=== PATIENT | male | born 1985 | race Caucasian/White ===

== ENCOUNTER 2017-07-05 10:15 | Emergency (ER) | payer OTHER, SELFPAY ==
--- NOTE | 2017-07-05 10:45 | HMH.EDUTC ---
[facility] [place] Disposition Clinical Impression: URI (upper respiratory infection) Qualifiers: URI type: unspecified URI Qualified Code(s): J06.9 - Acute upper respiratory infection, unspecified Disposition: Home, Self-Care Condition on Discharge: Good Instructions: Sore Throat, DI for Nasal Congestion, DI for Cough -- Adult Additional Instructions: *If you did not take Penicillin shot or was unable to, start taking antibiotic immediately and make sure that you take it for the FULL length of time although you should start to feel better in 24-48 hours *change toothbrush and toothpaste 24-48 hours after starting to take antibiotics so you do not reinfect yourself Monitor Temp. Tylenol and/or Ibuprofen as needed. ER if fever is no less than 101 despite alternating Tylenol and Ibuprofen * Encourage fluids, water, Gatorade, powerade, pedialyte if infant/toddler/or child *Cold fluids, popsicles and ice cream may feel good on his throat Prescriptions: Azithromycin [Z-Haider 250mg Tab] 250 mg PO UD DOSE PK #6 tab Dextromethorphan Polistirex [Delsym] 10 ml PO Q12H PRN #300 gibran.er.12h PRN Reason: Cough Guaifenesin/Dextromethorphan [Mucinex Dm ER 1,200-60 mg Tab] 1 each PO Q12H #10 tab.er.12h predniSONE [Prednisone 5mg Tab Dose-Pack] 5 mg PO UD DOSE PK #21 pack Forms: Work/School Release Time of Disposition: 11:08 Medical Decision Making - Medical Records Medical records reviewed: Yes: I reviewed the patient's medical records. Vital Signs: 07/05/17 10:53 Temperature 98.2 F Temperature Source Oral Pulse Rate [Right Brachial] 87 Respiratory Rate 16 Blood Pressure [Right Arm] 132/81 Blood Pressure Mean [Right Arm] 98 Blood Pressure Source [Right Arm] Automatic Cuff Blood Pressure Position [Right Arm] Supine 02 Sat by Pulse Oximetry 98 Oxygen Delivery Method Room Air - Karl Inquiry Pt receiving controlled substance: No Karl was queried for this patient: No [facility] [place] HPI - General Stated complaint: cough headache dizzy HEENT Symptoms (Recalled from RN notes): Yes - History of Present Illness Provider Complaint: Patient state that he has been having sinus pain and congestion State that his throat has been sore and irritated and blowing dark thick yellowish green out of his nose States that he has not had a fever that he knows of but just not feeling well State that he is having a nagging cough and headache at times - Related Data Previous Rx's Medication Instructions Recorded Azithromycin [Z-Haider 250mg Tab] 250 mg PO UD DOSE PK #6 tab 07/05/17 Dextromethorphan Polistirex 10 ml PO Q12H PRN #300 gibran.er.12h 07/05/17 [Delsym] Guaifenesin/Dextromethorphan 1 each PO Q12H #10 tab.er.12h 07/05/17 [Mucinex Dm ER 1,200-60 mg Tab] predniSONE [Prednisone 5mg Tab 5 mg PO UD DOSE PK #21 pack 07/05/17 Dose-Pack] Allergies Allergy/AdvReac Type Severity Reaction Status Date / Time Penicillins Allergy Rash Verified 07/05/17 10:47 [facility] History I have reviewed the patient's past medical history: Yes - Social History Alcohol Intake: never ROS Obtained: Yes All systems reviewed & no additional complaints - Constitutional Constitutional: Reports headache(s) - ENT Ears, Nose, Mouth, and Throat: Reports nasal congestion, Reports sinus pain, Reports sore throat - Respiratory Respiratory: Yes cough Physical Exam - General General appearance: alert, in no apparent distress - Expanded ENT Exam Throat exam: Present: tonsillar erythema Comment: Throat red, irritated drainage noted - Respiratory Respiratory exam: Present: normal lung sounds bilaterally. Absent: respiratory distress - Cardiovascular Cardiovascular exam: Present: regular rate, normal rhythm. Absent: JVD - Neurological Exam Neurological exam: Present: alert, oriented X3
--- NOTE | 2017-07-05 10:48 | ED_ITS ---
[facility] [place] Disposition Clinical Impression: URI (upper respiratory infection) Qualifiers: URI type: unspecified URI Qualified Code(s): J06.9 - Acute upper respiratory infection, unspecified Disposition: Home, Self-Care Condition on Discharge: Good Instructions: Sore Throat, DI for Nasal Congestion, DI for Cough -- Adult Additional Instructions: *If you did not take Penicillin shot or was unable to, start taking antibiotic immediately and make sure that you take it for the FULL length of time although you should start to feel better in 24-48 hours *change toothbrush and toothpaste 24-48 hours after starting to take antibiotics so you do not reinfect yourself Monitor Temp. Tylenol and/or Ibuprofen as needed. ER if fever is no less than 101 despite alternating Tylenol and Ibuprofen * Encourage fluids, water, Gatorade, powerade, pedialyte if infant/toddler/or child *Cold fluids, popsicles and ice cream may feel good on his throat Prescriptions: Azithromycin [Z-Haider 250mg Tab] 250 mg PO UD DOSE PK #6 tab Dextromethorphan Polistirex [Delsym] 10 ml PO Q12H PRN #300 gibran.er.12h PRN Reason: Cough Guaifenesin/Dextromethorphan [Mucinex Dm ER 1,200-60 mg Tab] 1 each PO Q12H #10 tab.er.12h predniSONE [Prednisone 5mg Tab Dose-Pack] 5 mg PO UD DOSE PK #21 pack Forms: Work/School Release Time of Disposition: 11:08 Medical Decision Making - Medical Records Medical records reviewed: Yes: I reviewed the patient's medical records. Vital Signs: 07/05/17 10:53 Temperature 98.2 F Temperature Source Oral Pulse Rate [Right Brachial] 87 Respiratory Rate 16 Blood Pressure [Right Arm] 132/81 Blood Pressure Mean [Right Arm] 98 Blood Pressure Source [Right Arm] Automatic Cuff Blood Pressure Position [Right Arm] Supine 02 Sat by Pulse Oximetry 98 Oxygen Delivery Method Room Air - Karl Inquiry Pt receiving controlled substance: No Karl was queried for this patient: No [facility] [place] HPI - General Stated complaint: cough headache dizzy HEENT Symptoms (Recalled from RN notes): Yes - History of Present Illness Provider Complaint: Patient state that he has been having sinus pain and congestion State that his throat has been sore and irritated and blowing dark thick yellowish green out of his nose States that he has not had a fever that he knows of but just not feeling well State that he is having a nagging cough and headache at times - Related Data Previous Rx's Medication Instructions Recorded Azithromycin [Z-Haider 250mg Tab] 250 mg PO UD DOSE PK #6 tab 07/05/17 Dextromethorphan Polistirex 10 ml PO Q12H PRN #300 gibran.er.12h 07/05/17 [Delsym] Guaifenesin/Dextromethorphan 1 each PO Q12H #10 tab.er.12h 07/05/17 [Mucinex Dm ER 1,200-60 mg Tab] predniSONE [Prednisone 5mg Tab 5 mg PO UD DOSE PK #21 pack 07/05/17 Dose-Pack] Allergies Allergy/AdvReac Type Severity Reaction Status Date / Time Penicillins Allergy Rash Verified 07/05/17 10:47 [facility] History I have reviewed the patient's past medical history: Yes - Social History Alcohol Intake: never ROS Obtained: Yes All systems reviewed & no additional complaints - Constitutional Constitutional: Reports headache(s) - ENT Ears, Nose, Mouth, and Throat: Reports nasal congestion, Reports sinus pain, Reports sore throat - Respiratory Respiratory: Yes cough Physical Exam - General
[2017-07-05 10:53] VITALS: BP 132/81; PULSE 87; RESP 16; TEMP 36.8; O2SAT 98; BMI 33.3
[2017-07-05 11:12] VITALS: BP 132/81; PULSE 87; RESP 16; TEMP 36.8; O2SAT 98
[2017-07-05 11:38] LABS: UTC Influenza A Antigen Negative (Negative); UTC Influenza B Antigen Negative (Negative); UTC Strep Screen (Rapid) Negative (Negative)
== END 2017-07-05 11:14 | disposition home or self-care (01) ==
PROVIDERS: Emergency Provider Nurse Practitioner
DX: J06.9 Acute upper respiratory infection, unspecified (principal); Z88.0 Allergy status to penicillin
CPT/HCPCS: 87804; 87880; 99203

== ENCOUNTER 2020-06-21 19:24 | Emergency (ER) | payer BC, SELFPAY ==
[2020-06-21 19:44] VITALS: BP 134/92; PULSE 88; RESP 16; TEMP 36.4; O2SAT 100; BMI 32.3
--- NOTE | 2020-06-21 19:58 | HMH.EDUTC ---
[facility] [place] Disposition Clinical Impression: Foreign body of left heel Disposition: Home, Self-Care Condition on Discharge: Good Instructions: DI for Puncture Wound, DI for Splinter Removal Additional Instructions: Soak your foot in warm epsom salts water three times per day for the next several days. Apply the topical antibiotic ointment as directed. Follow up with podiatry (Dr. Parra) if you continue to have issues with your foot. I put in a referral, but you will need to call her to schedule an appointment. Rest and elevate the foot for as much time as tolerated for the next few days. GO TO THE ER FOR ANY WORSENING SYMPTOMS OR CONCERNS Prescriptions: Mupirocin [Bactroban 2% Ointment 22gm tube] 1 applicatio TP TID 7 Days #1 tube Transmission Status: Received by [id number] Referrals: Minh Franco MD [Primary Care Provider] - Time of Disposition: 20:16 Medical Decision Making - Medical Records Medical records reviewed: No: I reviewed the patient's medical records. - Karl Inquiry Pt receiving controlled substance: No Vital Signs: 06/21/20 19:44 Temperature 97.6 F Temperature Source Tympanic Pulse Rate [Right] 88 Respiratory Rate 16 Blood Pressure [Right Arm] 134/92 H Blood Pressure Mean [Right Arm] 106 Blood Pressure Source [Right Arm] Automatic Cuff Blood Pressure Position [Right Arm] Sitting 02 Sat by Pulse Oximetry 100 [facility] [place] HPI - General Stated complaint: AO 0207 spinder in L foot Time Seen by Provider: 06/21/20 19:58 Mode of Arrival: Ambulatory Source of Information: Patient Limitations: No Limitations Description of Symptoms (Recalled from Triage Doc. by RN): pt has a wood splinter in the heal of his right foot. he is unable to get it out. HEENT Symptoms (Recalled from RN notes): No Resp Symptoms (Recalled from RN notes): No Skin Symptoms (Recalled from RN notes): Yes (wood splinter in right heal) MS Symptoms (Recalled from RN notes): No Functional Status (Recalled from RN notes): na - History of Present Illness Provider Complaint: He states that 5 days ago he was walking in his home with only socks on his feet. He has new hard wood floors. He got a splinter in his left heel. He was able to get part of it out, but he can still feel the splinter in his foot. He states that every time he puts his weight down on his foot it hurts severely. He walks a lot for his job. - Related Data Home Medications Medication Instructions Recorded Confirmed hydrochlorothiazide 12.5 mg tablet 12.5 mg PO DAILY tab 07/19/19 07/19/19 Previous Rx's Medication Instructions Recorded oseltamivir 75 mg capsule 75 mg PO BID 5 Days #10 cap 07/19/19 Mupirocin [Bactroban 2% Ointment 1 applicatio TP TID 7 Days #1 tube 06/21/20 22gm tube] Allergies Allergy/AdvReac Type Severity Reaction Status Date / Time Penicillins Allergy Rash Verified 07/19/19 16:33 - Worker's Comp Is this a Worker's Comp case?: No [facility] History - Hepatitis A Screen Drug use history?: No High risk sexual behaviors?: No History of sexually transmitted infection?: No Currently employed?: No Childcare worker?: No Do you have indoor plumbing?: Yes Do you have electricity?: Yes Attestation statement:: This patient has been screened for Hepatitis A risk factors. I have reviewed the patient's past medical history: Yes Medical History: Denies:: Cancer, Diabetes Mellitus Type 1, Diabetes Mellitus Type 2, MRSA Amputation: No Fractures: No - Social History Smoking Status: Never smoker Alcohol Intake: never Occupational Status: employed Housing: house Household Members: family Family Hx:: Non-contributory ROS Obtained: Yes All systems reviewed & no additional complaints - Constitutional Constitutional: Denies chills, Denies fever(s) - Integumentary/Breasts Skin/Breast: Reports as per HPI - Neurologic Neurologic: Denies tingling/numbness/burning sensations Physical Exam
[2020-06-21 20:29] VITALS: BP 131/82; PULSE 88; RESP 16; TEMP 36.8
== END 2020-06-21 20:30 | disposition home or self-care (01) ==
PROVIDERS: Emergency Provider Nurse Practitioner Family; PCP Family Medicine
DX: S90.852A Superficial foreign body, left foot, initial encounter (principal); W45.8XXA Other foreign body or object entering through skin, initial encounter; Y92.019 Unspecified place in single-family (private) house as the place of occurrence of the external cause
CPT/HCPCS: 10120; 99202; G0463

== ENCOUNTER 2020-07-06 18:18 | Outpatient (CLI) | payer BC, SELFPAY ==
--- NOTE | 2020-07-06 19:09 | PC.NURSE ---
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
== END 2020-07-06 19:10 | disposition home or self-care (01) ==
LOC: UTC.OUT 18:20
PROVIDERS: PCP Family Medicine; Visit Provider Nurse Practitioner
DX: Z02.9 Encounter for administrative examinations, unspecified (principal)

== ENCOUNTER → 2021-08-30 18:02 | Outpatient (CLI) | payer BC, SELFPAY | PROVIDERS: Visit Provider Nurse Practitioner | DX: Z02.9 Encounter for administrative examinations, unspecified (principal) ==

== ENCOUNTER 2021-12-08 09:42 | Emergency (ER) | payer BC, SELFPAY ==
[2021-12-08 09:56] VITALS: BP 135/86; PULSE 64; RESP 17; TEMP 36.8; O2SAT 98; BMI 35.6
--- NOTE | 2021-12-08 10:36 | HMH.EDUTC ---
[facility] [place] Disposition Clinical Impression: Left otitis media Qualifiers: Otitis media type: suppurative Chronicity: acute Recurrence: non-recurrent Spontaneous tympanic membrane rupture: without spontaneous rupture Qualified Code(s): H66.002 - Acute suppurative otitis media without spontaneous rupture of ear drum, left ear Disposition: Home, Self-Care Condition on Discharge: Good Instructions: Middle Ear Infection Additional Instructions: Drink plenty of fluids. Take tylenol or ibuprofen for pain or fever. Take the medications as directed. Follow up with your regular doctor. GO TO THE ER FOR ANY WORSENING SYMPTOMS Prescriptions: Pseudoephedrine HCl 30 mg PO Q6HP PRN #30 tab PRN Reason: Congestion Transmission Status: Received by [id number] methylPREDNISolone [Medrol] 4 mg PO DIRECTED 6 Days #21 packet Transmission Status: Received by [id number] Azithromycin [Z-Haider 250mg Tab*] 250 mg PO UD DOSE PK #6 tab Transmission Status: Received by [id number] Referrals: Provider,Referral, MD [Primary Care Provider] - Time of Disposition: 10:38 Medical Decision Making - Medical Records Medical records reviewed: No: I reviewed the patient's medical records. - Karl Inquiry Pt receiving controlled substance: No Vital Signs: 12/08/21 09:56 12/08/21 10:41 Temperature 98.3 F 98.3 F Temperature Source Oral Pulse Rate 64 Pulse Rate [Left] 64 Respiratory Rate 17 17 Blood Pressure 135/86 Blood Pressure [Right Arm] 135/86 Blood Pressure Mean [Right Arm] 102 02 Sat by Pulse Oximetry 98 - Lab Data Lab results reviewed: Yes: I reviewed the patient's lab results. [facility] [place] HPI - General Stated complaint: left ear pain Time Seen by Provider: 12/08/21 10:00 Mode of Arrival: Ambulatory Source of Information: Patient Limitations: No Limitations Description of Symptoms (Recalled from Triage Doc. by RN): patient comes in for left ear pain. patient states symptoms have been ongoing for 3 days HEENT Symptoms (Recalled from RN notes): Yes Resp Symptoms (Recalled from RN notes): No Skin Symptoms (Recalled from RN notes): No MS Symptoms (Recalled from RN notes): No Functional Status (Recalled from RN notes): n/a - History of Present Illness Provider Complaint: He states that he has had left ear pain for the past 4 days. It is getting worse and the pain kept him awake last night. - Related Data Home Medications Medication Instructions Recorded Confirmed hydrochlorothiazide 12.5 mg tablet 12.5 mg PO DAILY tab 07/19/19 07/19/19 Previous Rx's Medication Instructions Recorded oseltamivir 75 mg capsule 75 mg PO BID 5 Days #10 cap 07/19/19 Mupirocin [Bactroban 2% Ointment 1 applicatio TP TID 7 Days #1 tube 06/21/20 22gm tube] Azithromycin [Z-Haider 250mg Tab*] 250 mg PO UD DOSE PK #6 tab 12/08/21 Pseudoephedrine HCl 30 mg PO Q6HP PRN #30 tab 12/08/21 methylPREDNISolone [Medrol] 4 mg PO DIRECTED 6 Days #21 12/08/21 packet Allergies Allergy/AdvReac Type Severity Reaction Status Date / Time Penicillins Allergy Rash Verified 12/08/21 09:58 - Worker's Comp Is this a Worker's Comp case?: No [facility] History - Hepatitis A Screen Attestation statement:: This patient has been screened for Hepatitis A risk factors. I have reviewed the patient's past medical history: Yes Medical History: Denies:: Cancer, Diabetes Mellitus Type 1, Diabetes Mellitus Type 2, MRSA Amputation: No Fractures: No - Social History Smoking Status: Never smoker Alcohol Intake: never Occupational Status: employed Housing: house Household Members: family Family Hx:: Non-contributory ROS Obtained: Yes All systems reviewed & no additional complaints - Constitutional Constitutional: Denies chills, Denies fever(s), Reports poor appetite, Reports malaise - Eyes Eyes: Denies eye discharge - ENT Ears, Nose, Mouth, and Throat: Reports as per HPI - Cardiovascular Cardi
[2021-12-08 10:41] VITALS: BP 135/86; PULSE 64; RESP 17; TEMP 36.8
== END 2021-12-08 10:42 | disposition home or self-care (01) ==
PROVIDERS: Emergency Provider Nurse Practitioner Family
DX: H66.002 Acute suppurative otitis media without spontaneous rupture of ear drum, left ear (principal); Z88.0 Allergy status to penicillin
CPT/HCPCS: 99213; G0463

== ENCOUNTER 2021-12-15 09:57 | Emergency (ER) | payer BC, SELFPAY ==
[2021-12-15 09:58] VITALS: BP 144/83; PULSE 88; RESP 18; TEMP 36.8; O2SAT 99; BMI 35.6
[2021-12-15 10:05] VITALS: BP 144/83; PULSE 88; RESP 18; TEMP 36.8; O2SAT 99; BMI 35.8
--- NOTE | 2021-12-15 10:16 | HMH.EDUTC ---
[facility] [place] Disposition Clinical Impression: Left otitis externa Qualifiers: Otitis externa type: unspecified type Chronicity: unspecified Qualified Code(s): H60.92 - Unspecified otitis externa, left ear Disposition: Home, Self-Care Condition on Discharge: Good Instructions: How to Instill Ear Drops, Otitis Externa, DI for Otitis Externa Additional Instructions: Use drops in ear as prescribed Follow up with ENT and/or Your Family Physician for further evaluation and examination if no improvement Return if needed Straight to ER if any life threatening symptoms Prescriptions: Neomycin/Polymyxin B/Hydrocort [Cnyenkii-Ksyynsewb-Pm Ear Susp] 4 drp OT QID 7 Days #10 ml Transmission Status: Pending to [id number] Referrals: Provider,MD Rossy [Primary Care Provider] - As needed Devonte Caban MD [Physician] - Hipolito Gasca MD [Physician] - Forms: Work/School Release Time of Disposition: 10:27 Medical Decision Making - Karl Inquiry Pt receiving controlled substance: No Karl was queried for this patient: No Vital Signs: 12/15/21 09:58 12/15/21 10:05 Temperature 98.2 F 98.2 F Temperature Source Oral Oral Pulse Rate [Right Radial] 88 88 Respiratory Rate 18 18 Blood Pressure [Right Arm] 144/83 H 144/83 H Blood Pressure Mean [Right Arm] 103 103 Blood Pressure Source [Right Arm] Automatic Cuff Automatic Cuff Blood Pressure Position [Right Arm] Sitting Sitting 02 Sat by Pulse Oximetry 99 99 Oxygen Delivery Method Room Air Orders (Tests/Meds): ORDERS Category Date Time Status Full Resp Panel w/COVID ([facility]) Routine Lab 12/15/21 10:16 Ordered [facility] [place] HPI - General Stated complaint: ear pain, hearing loss LT ear, chills Time Seen by Provider: 12/15/21 10:16 Mode of Arrival: Ambulatory Source of Information: Patient Limitations: No Limitations Description of Symptoms (Recalled from Triage Doc. by RN): PATIENT C/O LEFT EAR PAIN WITH DECREASED HEARING AND BODY ACHES. RECENTLY FINISHED ANTIBIOTICS FOR AN EAR INFECTION HEENT Symptoms (Recalled from RN notes): No Resp Symptoms (Recalled from RN notes): No Skin Symptoms (Recalled from RN notes): No MS Symptoms (Recalled from RN notes): No Functional Status (Recalled from RN notes): WNL - History of Present Illness Provider Complaint: Patient states that he has been having pain and pressure in his left ear States that he has been having decreased hearing, left ear sore and feels like it is swollen, body aches and chills States that not sure if it is all related or something else on top of the ear so he came in - Related Data Previous Rx's Medication Instructions Recorded Neomycin/Polymyxin B/Hydrocort 4 drp OT QID 7 Days #10 ml 12/15/21 [Tcakraug-Zcbrbexyq-Sg Ear Susp] Allergies Allergy/AdvReac Type Severity Reaction Status Date / Time Penicillins Allergy Rash Verified 12/08/21 09:58 - Worker's Comp Is this a Worker's Comp case?: No [facility] History - Hepatitis A Screen Attestation statement:: This patient has been screened for Hepatitis A risk factors. I have reviewed the patient's past medical history: Yes Medical History: Denies:: Cancer, Diabetes Mellitus Type 1, Diabetes Mellitus Type 2, MRSA Amputation: No Fractures: No - Social History Smoking Status: Never smoker Alcohol Intake: never Occupational Status: employed Housing: house Household Members: family Family Hx:: Non-contributory ROS Obtained: Yes All systems reviewed & no additional complaints, Yes Systems reviewed as appropriate & no additional complaints - Constitutional Constitutional: Reports system reviewed and no additional complaints, except as docu, Reports body ache, Reports chills, Denies fever(s), Reports headache(s) (on and off) - ENT Ears, Nose, Mouth, and Throat: Reports system reviewed and no additional complaints, except as docu, Reports otalgia - Cardiovascular Cardiovascular: Reports system reviewed and no additional complaints, exce
[2021-12-15 10:33] VITALS: BP 144/83; PULSE 88; RESP 18; TEMP 36.8; O2SAT 99
[2021-12-15 10:44] LABS: Adenovirus,PCR Not Detected (NotDetected); Bordetella Pertussis Not Detected (NotDetected); Chlamydophila Pneumoniae, PCR Not Detected (NotDetected); Coronavirus 19, PCR Not Detected (NotDetected); Coronavirus 229E Not Detected (NotDetected); Coronavirus NL63 Not Detected (NotDetected); Coronavirus OC43 Not Detected (NotDetected); Coronovirus HKU1,PCR Not Detected (NotDetected); Human Metapneumovirus Not Detected (NotDetected); Influenza A, PCR Not Detected (NotDetected); Influenza AH1, 2009 Not Detected (NotDetected); Influenza AH1, PCR Not Detected (NotDetected); Influenza AH3,PCR Not Detected (NotDetected); Influenza B, PCR Not Detected (NotDetected); Mycoplasma Pneumoniae, PCR Not Detected (NotDetected); Parainfluenza 1, PCR Not Detected (NotDetected); Parainfluenza 2, PCR Not Detected (NotDetected); Parainfluenza 3, PCR Not Detected (NotDetected); Parainfluenza 4, PCR Not Detected (NotDetected); Respiratory Syncytial Virus Not Detected (NotDetected); Rhinovirus/Enterovirus Not Detected (NotDetected)
== END 2021-12-15 10:38 | disposition home or self-care (01) ==
PROVIDERS: Emergency Provider Nurse Practitioner
DX: H60.92 Unspecified otitis externa, left ear (principal)
CPT/HCPCS: 87581; 87632; 87798; 99212; C9803; G0463; U0003; U0005

== ENCOUNTER 2022-12-05 15:46 | Emergency (ER) | payer BC, SELFPAY ==
[2022-12-05 16:00] VITALS: BP 159/82; PULSE 84; RESP 20; TEMP 36.8; O2SAT 98; BMI 35.6
--- NOTE | 2022-12-05 17:05 | EXP.UTC ---
Discharge Plan Disposition Patient Disposition: Home, Self-Care Prescriptions Prescriptions: New gopkuizv-rlnfqeuaf-OR 3.5-10,000-1 mg/mL-unit/mL-% drops,suspension 4 drp otic (ear) TID 10 Days Qty: 10 0RF No Action ejzumsdz-ymtlzklks-KO 10 ML drops,suspension 4 drp OT QID 7 Days Qty: 10 0RF Rx Instructions: apply 4 drops in left ear QID for 7 days Referrals Follow up/Referrals: Provider,Referral, MD [Primary Care Provider] - See instructions Clinical Impressions Clinical Impression: Left otitis externa Qualifiers: Otitis externa type: swimmer's ear Chronicity: acute Qualified Code(s): H60.332 - Swimmer's ear, left ear Instructions Patient Instructions: DI for Otitis Externa Discharge ED Provider: Janessa Reyes [facility] General Stated complaint: LT ear pain Mode of Arrival: Ambulatory Source of Information: Patient Limitations: No Limitations Time Seen by Provider: 12/05/22 17:05 Description of Symptoms (Recalled from Triage Doc. by RN): PATIENT C/O LEFT EAR PAIN THAT STARTED SATURDAY HEENT Symptoms (Recalled from RN notes): Yes Resp Symptoms (Recalled from RN notes): No Skin Symptoms (Recalled from RN notes): No MS Symptoms (Recalled from RN notes): No Functional Status (Recalled from RN notes): WNL History of Present Illness Provider Complaint: Pt states that his left ear started hurting on Saturday and he had gone swimming on Saturday. He reports that he had the same thing happen last year. Related Data Previous Rx's Medication Instructions Recorded ajpzvsna-plpxwdvwh-xqrbekedd 3.5 4 drp otic (ear) QID 7 days #10 mL 12/15/21 mg-10,000 unit/mL-1 % ear drops,susp qblbfzux-pituvqfqd-jbqnhxxge 3.5 4 drp otic (ear) TID 10 days #10 mL 12/05/22 mg-10,000 unit/mL-1 % ear drops,susp Allergies Allergy/AdvReac Type Severity Reaction Status Date / Time Penicillins Allergy Rash Verified 12/08/21 09:58 Worker's Comp Is this a Worker's Comp case?: No [facility] Disclaimer: The information contained in this section may have been updated after the patient was seen, as this information can be updated by other users. Medical History (Updated 12/05/22 @ 17:16 by Janessa Reyes APRN) Carpal tunnel syndrome Social History Smoking Status: Never smoker alcohol intake: never current occupational status: employed Travel in the last 8 weeks: None household members: family housing: house ROS Obtained: Yes All systems reviewed & no additional complaints except as documented Constitutional Constitutional: Reports system reviewed and no additional complaints, except as documented Eyes Eyes: Reports system reviewed and no additional complaints, except as documented ENT Ears, Nose, Mouth, and Throat: Reports system reviewed and no additional complaints, except as documented and Reports otalgia Cardiovascular Cardiovascular: Reports system reviewed and no additional complaints, except as documented Respiratory Respiratory: Reports system reviewed and no additional complaints, except as documented Gastrointestinal Gastrointestingal: Reports system reviewed and no additional complaints, except as documented Genitourinary Male Genitourinary: Reports system reviewed and no additional complaints, except as documented Musculoskeletal Musculoskeletal: Reports system reviewed and no additional complaints, except as documented Integumentary/Breasts Skin/Breast: Reports system reviewed and no additional complaints, except as documented Neurologic Neurologic: Reports system reviewed and no additional complaints, except as documented Endocrine Endocrine: Reports system reviewed and no additional complaints, except as documented Hematologic/Lymphatic Henatologic/Lymphatic: Reports system reviewed and no additional complaints, except as documented Allergic/Immunologic Allergic/Immunologic: Reports system reviewed and no additional complaints, except as documented Physical Exam General
[2022-12-05 17:17] VITALS: BP 159/82; PULSE 84; RESP 20; TEMP 36.8; O2SAT 98
== END 2022-12-05 17:20 | disposition home or self-care (01) ==
PROVIDERS: Emergency Provider Nurse Practitioner Family
DX: H60.332 Swimmer's ear, left ear (principal)
CPT/HCPCS: 99212; 99214; G0463

== ENCOUNTER 2022-12-13 13:05 | Emergency (ER) | payer BC, SELFPAY ==
[2022-12-13 13:07] VITALS: BP 132/79; PULSE 74; RESP 18; TEMP 36.7; O2SAT 100; BMI 35.6
--- NOTE | 2022-12-13 13:31 | EXP.UTC ---
Discharge Plan Disposition Patient Disposition: Home, Self-Care Condition: Good Prescriptions Prescriptions: New cefdinir 300 mg capsule 300 mg PO BID Qty: 20 0RF ciprofloxacin-dexamethasone 0.3-0.1 % Drops,Suspension 2 drp OTIC (EAR) BID 7 Days Qty: 1 0RF No Action khwtxcvs-ieqwpugks-FD 10 ML drops,suspension 4 drp OT QID 7 Days Qty: 10 0RF Rx Instructions: apply 4 drops in left ear QID for 7 days zgatetsc-hqhfaykpd-WQ 3.5-10,000-1 mg/mL-unit/mL-% drops,suspension 4 drp otic (ear) TID 10 Days Qty: 10 0RF Referrals Follow up/Referrals: Provider,Referral, MD [Primary Care Provider] - See instructions Activity Restrictions/Add. Instructions Additional Instructions/Restrictions: Drink plenty of fluids. Start the ear drops that we prescribed today as directed. If they end up being very expensive or if your insurance will not pay for this drop, please have the pharmacist to call us to discuss what they have that would be cheaper. Take tylenol for pain or fever. Take the medications as directed. Follow up with your regular doctor. GO TO THE ER FOR ANY WORSENING SYMPTOMS Clinical Impressions Clinical Impression: Otitis media, Otitis externa Instructions Patient Instructions: How to Instill Ear Drops, Middle Ear Infection, DI for Otitis Externa Discharge ED Provider: Alec Vasquez [facility] General Stated complaint: ear infection Mode of Arrival: Ambulatory Source of Information: Patient Limitations: No Limitations Time Seen by Provider: 12/13/22 13:31 Description of Symptoms (Recalled from Triage Doc. by RN): Patient reports left ear pain for 1 week. HEENT Symptoms (Recalled from RN notes): Yes Resp Symptoms (Recalled from RN notes): No Skin Symptoms (Recalled from RN notes): No MS Symptoms (Recalled from RN notes): No Functional Status (Recalled from RN notes): wnl History of Present Illness Provider Complaint: He is back to follow up over an ear infection. He was seen here last week for bilateral ear pain and pressure. He was prescribed an ear drop. He states that he has used the ear drops exactly as prescribed for the past 1 week with no improvement in his symptoms. Related Data Previous Rx's Medication Instructions Recorded jqxtlmvv-pbbszougl-syqqdsivv 3.5 4 drp otic (ear) QID 7 days #10 mL 12/15/21 mg-10,000 unit/mL-1 % ear drops,susp qentlwor-hahfdljqb-zydxsmabq 3.5 4 drp otic (ear) TID 10 days #10 mL 12/05/22 mg-10,000 unit/mL-1 % ear drops,susp cefdinir 300 mg capsule 300 mg PO BID #20 caps 12/13/22 ciprofloxacin 0.3 %-dexamethasone 2 drp otic (ear) BID 7 days #1 ea 12/13/22 0.1 % ear drops,suspension Allergies Allergy/AdvReac Type Severity Reaction Status Date / Time Penicillins Allergy Rash Verified 12/08/21 09:58 Worker's Comp Is this a Worker's Comp case?: No [facility] Disclaimer: The information contained in this section may have been updated after the patient was seen, as this information can be updated by other users. Medical History Carpal tunnel syndrome Social History Smoking Status: Never smoker alcohol intake: never current occupational status: employed Travel in the last 8 weeks: None household members: family housing: house ROS Obtained: Yes All systems reviewed & no additional complaints except as documented Constitutional Constitutional: Denies chills, Reports fever(s) and Reports poor appetite Eyes Eyes: Denies eye discharge ENT Ears, Nose, Mouth, and Throat: Denies ear discharge, Reports otalgia, Denies hearing loss, Denies sinus pain and Reports sore throat Cardiovascular Cardiovascular: Denies chest pain and Denies dyspnea Respiratory Respiratory: Denies chest congestion, Reports cough and Denies dyspnea Gastrointestinal Gastrointestingal: Denies abdominal pain, diarrhea, nausea or vomiting Mus
[2022-12-13 13:56] VITALS: BP 132/79; PULSE 74; RESP 18; TEMP 36.7; O2SAT 100
== END 2022-12-13 13:57 | disposition home or self-care (01) ==
PROVIDERS: Emergency Provider Nurse Practitioner Family
DX: H66.92 Otitis media, unspecified, left ear (principal); H60.92 Unspecified otitis externa, left ear
CPT/HCPCS: 99212; 99214; G0463

== ENCOUNTER 2023-04-14 18:31 | Emergency (ER) | payer BC, SELFPAY ==
[2023-04-14] VITALS (8 sets, daily range): BP systolic 118–136; BP diastolic 72–95; PULSE 67–86; RESP 14–21; TEMP 36.7–37.1; O2SAT 95–99; BMI 36.9
--- NOTE | 2023-04-14 18:33 | ECG_ITS ---
APPROVED REPORT Exam: Resting ECG HR:84 bpm ECG Measurements Heart Rate 84 AXES SD 177 P 42 QRSd 116 QRS 70 QT 347 T 40 QTc 388 Conclusion SINUS RHYTHM MODERATE INTRAVENTRICULAR CONDUCTION DELAY [110+ ms QRS DURATION] BORDERLINE ECG UNCONFIRMED REPORT Electronically signed by : J Carlos Gomez MD 04/15/2023 17:37:42
--- NOTE | 2023-04-14 18:43 | XR_ITS ---
PROCEDURE INFORMATION: Exam: XR Chest Exam date and time: 04/14/2023 7:03 PM Age: 37 years old Clinical indication: Sternal or substernal pain; Additional info: Chest pain TECHNIQUE: Imaging protocol: Radiologic exam of the chest. Views: 2 views. COMPARISON: No relevant prior studies available. FINDINGS: Lungs: No evidence of acute pulmonary disease or infiltrates; lung solorzano appear clear. Pleural spaces: No evidence of pleural effusion, pneumothorax, or pleural thickening in the visualized pleural spaces. Heart/Mediastinum: No evidence of mediastinal widening or cardiac silhouette enlargement; the mediastinum and heart appear within normal limits for contour and size. Diaphragm: There is elevation of the left hemidiaphragm. Bones/joints: No evidence of acute osseous abnormalities within the visualized portions of the thoracic spine and ribs. Osseous structures appear appropriate for patient age. IMPRESSION: No dense parenchymal consolidation, pleural effusion, or pneumothorax.
[2023-04-14 18:53] LABS: Basophils # 0.1 K/mm3 (0-0.2); Basophils % 0.7 % (0.1-2.0); Eosinophils # 0.1 K/mm3 (0.0-0.4); Eosinophils % 1.7 % (0.1-12.0); Hematocrit 41.9 % (42.0-52.0); Lymphocytes # 2.6 K/mm3 (0.7-4.5); Mean Corpuscular HGB Conc 35.8 g/dL (31.8-35.4); Mean Corpuscular Volume 78.2 fl (80-94); Monocytes # 0.3 K/mm3 (0.1-1.0); Monocytes % 3.7 % (1.7-9.3); Neutrophils # 3.8 K/mm3 (1.8-7.8); Neutrophils % 55.9 % (37.0-80.0); Platelet Count 207 K/mm3 (142-424); Red Blood Count 5.36 M/mm3 (4.60-6.20); Red Cell Distribution Width 13.9 % (11.5-17.5); White Blood Count 6.8 K/mm3 (4.8-10.8)
--- NOTE | 2023-04-14 19:14 | HMH.EDCP ---
Discharge Plan Disposition Patient Disposition: Home, Self-Care Prescriptions Prescriptions: No Action qaintrfg-pejutrqfi-XU 10 ML drops,suspension 4 drp OT QID 7 Days Qty: 10 0RF Rx Instructions: apply 4 drops in left ear QID for 7 days llfqqhcv-zprtqdpng-RV 3.5-10,000-1 mg/mL-unit/mL-% drops,suspension 4 drp otic (ear) TID 10 Days Qty: 10 0RF cefdinir 300 mg capsule 300 mg PO BID Qty: 20 0RF ciprofloxacin-dexamethasone 0.3-0.1 % Drops,Suspension 2 drp OTIC (EAR) BID 7 Days Qty: 1 0RF Referrals Follow up/Referrals: Provider,Referral, MD [Primary Care Provider] - See instructions Activity Restrictions/Add. Instructions Additional Instructions/Restrictions: There is no evidence of acute cardiopulmonary emergency on your evaluation today. Serial EKGs were unremarkable serial blood tests were normal please follow-up with primary care for further evaluation and treatment. Clinical Impressions Clinical Impression: Atypical chest pain Discharge ED Provider: Cindy Dasilva [facility] General Chief Complaint: Chest Pain Stated Complaint: Chest pain Time Seen by Provider: 04/14/23 19:02 Mode of Arrival: Family Vehicle Source of Information: Patient Limitations: No Limitations Description of Symptoms (Recalled from ER Triage Doc. by RN): Pt c/o midsternal chest pain that radiates down left arm. States it began approx 2 days ago when he awoke from sleep. States the pain worsened with movement. However today he has noticed the pain is intermittently dull to severe and does not percipitate with movement. He began to feel very anxious and had something was really wrong . Denies any SOA, dyspnea, or fever. History of Present Illness HPI narrative: Is a 37-year-old male presenting today with intermittent substernal chest discomfort rating to his left arm. Denies any exertional symptoms or any diaphoresis. Symptoms have been intermittently happening over the last several days and have been lasting at most 15 minutes. He currently is without any symptoms most recent episode was 1 hour ago. Denies any shortness of breath denies any diaphoresis any fevers chills cough etc. No history of any cardiopulmonary pathology in the past. Related Data Previous Rx's Medication Instructions Recorded oyevyxwk-sqovsabit-vzxwfjple 3.5 4 drp otic (ear) QID 7 days #10 mL 12/15/21 mg-10,000 unit/mL-1 % ear drops,susp jemqtjbn-fiqyqwufr-qiefjijqh 3.5 4 drp otic (ear) TID 10 days #10 mL 12/05/22 mg-10,000 unit/mL-1 % ear drops,susp cefdinir 300 mg capsule 300 mg PO BID #20 caps 12/13/22 ciprofloxacin 0.3 %-dexamethasone 2 drp otic (ear) BID 7 days #1 ea 12/13/22 0.1 % ear drops,suspension Allergies Allergy/AdvReac Type Severity Reaction Status Date / Time Penicillins Allergy Rash Verified 12/08/21 09:58 [facility] Disclaimer: The information contained in this section may have been updated after the patient was seen, as this information can be updated by other users. Medical History Carpal tunnel syndrome Social History Smoking Status: Never smoker alcohol intake: never current occupational status: employed Travel in the last 8 weeks: None household members: family housing: house ROS Obtained: Yes All systems reviewed & no additional complaints except as documented Physical Exam General General appearance: alert Respiratory Respiratory exam: Present normal lung sounds bilaterally; Absent respiratory distress, wheezes, stridor, accessory muscle use or prolonged expiratory phase Cardiovascular Cardiovascular exam: Present regular rate; Absent tachycardia Abdominal Exam Abdominal exam: Present soft; Absent distention, tenderness or guarding Neurological Exam Neurological exam: Present alert and oriented X3 HEART Score HEART Score HEART Score assessment performed?: Yes History (anamnesis
[2023-04-14 19:17] LABS: Chloride 104 mmol/L (98-107)
[2023-04-14 19:18] LABS: Potassium 3.3 mmoL/L (3.5-5.1); Sodium 140 mmol/L (136-145)
[2023-04-14 19:20] LABS: Alanine Aminotransferase 23 U/L (12-78); Albumin Level 4.8 g/dl (3.5-5.0); Albumin/Globulin Ratio 1.3 (1.1-1.8); Alkaline Phosphatase 107 U/L (38-126); Aspartate Amino Transferase 39 U/L (17-59); Bilirubin,Total 0.6 mg/dl (0.2-1.3); Blood Urea Nitrogen 19 mg/dl (9-20); Creatinine Clearance Estimated 183 mL/min (50-200); Estimated Glomerular Filt Rate 85 ml/min (>60); GFR (African American) 102 ML/MIN (>60); Globulin 3.7 g/dL (1.3-3.2); Total Protein,Serum 8.5 g/dl (6.3-8.2)
[2023-04-14 19:21] LABS: Calcium 8.7 mg/dl (8.4-10.2); Glucose 108 mg/dl (74-100)
[2023-04-14 19:33] LABS: Anion Gap 9.3 mEq/L (5-15); Carbon Dioxide 30 mmol/L (22.0-30.0); Troponin I < 0.01 ng/ml (0.00-0.034)
--- NOTE | 2023-04-14 20:26 | PC.NURSE ---
Pt called out with c/o increased chest pain. Dr Dasilva aware, verbal order for repeat EKG.
[2023-04-14 22:09] LABS: Troponin I < 0.01 ng/ml (0.00-0.034)
--- NOTE | 2023-04-14 22:14 | PC.NURSE ---
Patient reports left sided chest pain 6/10, sharp, sudden onset. Notified provider. Repeat ECG being obtained.
--- NOTE | 2023-04-14 22:16 | ECG_ITS ---
APPROVED REPORT Exam: Resting ECG HR:73 bpm ECG Measurements Heart Rate 73 AXES ND 182 P 37 QRSd 118 QRS 45 QT 376 T 30 QTc 402 Conclusion SINUS RHYTHM LOW QRS VOLTAGE IN PRECORDIAL LEADS [QRS DEFLECTION < 1.0 mV IN CHEST LEADS] MODERATE INTRAVENTRICULAR CONDUCTION DELAY [110+ ms QRS DURATION] BORDERLINE ECG UNCONFIRMED REPORT Electronically signed by : J Carlos Gomez MD 04/15/2023 17:36:47
== END 2023-04-14 22:30 | disposition home or self-care (01) ==
PROVIDERS: Emergency Provider Student in an Organized Health Care Education/Training Program
DX: R07.89 Other chest pain (principal); M79.602 Pain in left arm
CPT/HCPCS: 36415; 71046; 80053; 84484; 85025; 93005; 99285

== ENCOUNTER 2023-07-29 07:42 | Day surgery (SDC) | payer BC, SELFPAY ==
[2023-07-25 10:44] VITALS: BMI 37.8
[2023-07-29] MEDS: LACTATED RINGERS 1000ML 1,000 ML 100 ML IV (08:08)
[2023-07-29 08:10] VITALS: BP 137/69; PULSE 65; RESP 18; TEMP 36.7; O2SAT 99
--- NOTE | 2023-07-29 08:46 | EXP.ANES.CKL ---
[facility] Disclaimer: The information contained in this section may have been updated after the patient was seen, as this information can be updated by other users. Medical History History of COVID-19 Hypertension Carpal tunnel syndrome Surgical History (Updated 07/29/23 @ 08:10 by Vaughn Thomas RN) History of carpal tunnel release Family History Other No significant family history Social History Smoking Status: Never smoker alcohol intake: never substance use type: denies use current occupational status: employed Travel in the last 8 weeks: None household members: family housing: house [facility] Anesthesia Checklist Patient Identification Patient Identification: Arm Band Structural Data Admitted From: Home Planned Operative Procedure/s: vasectomy Consent for Planned Operative Procedure(s) Verified: Yes Verified Documents: Surgical Consent and History and Physical NPO Status Verified Time NPO: 00:00 Additional verifications Anesthesia Reactions: No Hx Blood Transfusions: No Blood Transfusion Reaction: No Airway Assessment Mallampati Score:: Class II C-Spine Mobility Assessed: Yes TMJ Mobility Assessed: Yes Dentition: Good Dentition Neurological Assessment Level of Consciousness: Awake and Alert Anesthesia Plan Anesthesia Risk discussed: Yes Anesthesia Plan: Verified ASA Class: II Anesthesia Type: MAC
[2023-07-29] MEDS: BUPIVACAINE 0.5% 30ML VIAL 150 MG (09:22)
[2023-07-29 09:47] VITALS: BP 122/83; PULSE 67; RESP 17; TEMP 36.2; O2SAT 94
[2023-07-29 09:57] VITALS: BP 133/71; PULSE 67; RESP 16; O2SAT 94
[2023-07-29 10:07] VITALS: BP 132/88; PULSE 65; RESP 16; O2SAT 98
[2023-07-29 10:17] VITALS: BP 130/78; PULSE 65; RESP 16; TEMP 36.6; O2SAT 98
--- NOTE | 2023-07-29 11:34 | HMH.PROCNOTE ---
[facility] Procedure Note Procedure Note:: Preop diagnosis: Elective sterilization Postop diagnosis: Elective sterilization Operation: Vasectomy Operative note: The patient was brought to the operating room LMAC anesthesia was administered after he was prepped and draped using a sterile technique. The patient's vas deferens was picked up between the thumb and forefinger first on the right side and then on the left side. The vasectomies were done identical on the left and the right side. Skin incision was made over the vas deferens the vas was grasped with a towel clip. The external spermatic fascia was incised and the vas deferens on exposed. The patient did have some vascularity requiring the Bovie and ligation. The distal and proximal end of the vas deferens were ligated with 0 silk. A small section of vas deferens was removed and submitted to pathology for identification. Hemostasis was assured. The vas deference would drop back into the scrotal compartment. The scrotal skin was closed with interrupted 2-0 chromic. The patient tolerated the procedure well. The estimated blood loss was less than 10 cc.
== END 2023-07-29 10:17 | disposition home or self-care (01) ==
PROVIDERS: PCP Family Medicine; Visit Provider Urology
PROC: (CPT 55250; principal; 2023-07-29 09:15)
DX: Z30.2 Encounter for sterilization (principal)
CPT/HCPCS: 55250; J2704

== ENCOUNTER 2023-11-28 14:56 | Outpatient (CLI) | payer BC, SELFPAY ==
[2023-11-28 15:45] LABS: Semen Viscosity Stringy (Normal)
[2023-11-28 16:11] LABS: WBCs,Semen Negative
[2023-11-28 16:12] LABS: PH,Semen 8.5 (7.3-8.3)
== END 2023-11-28 23:59 | disposition home or self-care (01) ==
LOC: LAB 14:57
PROVIDERS: PCP Family Medicine; Visit Provider Urology
DX: Z30.09 Encounter for other general counseling and advice on contraception (principal)
CPT/HCPCS: 89320